=== PATIENT | male | born 1950 | race Caucasian/White ===

== ENCOUNTER 2018-08-13 18:46 | Emergency (ER) | payer MEDICARE, OTHER ==
[~2018-08-13] VITALS: Ht 167.6 cm; Wt 80.0 kg
[~2018-08-13 18:46] MED LIST: ASPI81TA52 PO; ERGO2000 PO; FINA5TAB4 PO; INSU100I31 SQ; METF100010 PO; ROSU20TA PO; TAMS0.4C2 PO
[2018-08-13 18:56] VITALS: Ht 167.6 cm; Wt 80.0 kg
[2018-08-13] MEDS ORDERED: INSU200I4 SQ (20:28)
[2018-08-13] MEDS ORDERED: TAMS0.4C2 PO (20:29)
--- NOTE | 2018-08-13 21:17 | ERD ---
ER Documentation Chief Complaint Chief Complaint had prostate surgery yesterday, states painful urination/leaking f/c HPI 68-year-old male with a history of diabetes and BPH presenting with problems with his Granda catheter. Patient had an elective UroLift done by Dr. Nichols. Granda was placed at that time. Patient is presenting today as he is having a lot of pain around his penis with leakage of urine around his Granda catheter. He states that not a lot of urine is draining into the Granda bag. He denies any abdominal pain, back pain, fever, chills, nausea, vomiting, constipation. However he intermittently has the urge to urinate and has a lot of pain around his penis. No alleviating or exacerbating factors. Pain is 10 out of 10 at maximum. ROS All systems reviewed and are negative except as per history of present illness. Medications Home Meds Active Scripts Phenazopyridine Hcl* (Pyridium*) 200 Mg Tab, 200 MG PO TID PRN for URINARY PAIN, #6 TAB Prov:HU MITCHELL MD 08/13/18 Reported Medications Tamsulosin Hcl* (Tamsulosin Hcl*) 0.4 Mg Cap.er.24h, 0.8 MG PO HS, CAP 08/13/18 Insulin Degludec (Tresiba Flextouch U-200) 200 Unit/1 Ml Insuln.pen, 20 UNIT SQ QAM 08/13/18 Finasteride* (Finasteride*) 5 Mg Tablet, 5 MG PO DAILY, TAB 08/12/18 Ergocalciferol (Vitamin D2) (VITAMIN D2) 2,000 Unit Tablet, 2000 UNIT PO DAILY, TAB 08/12/18 Rosuvastatin Calcium* (Crestor*) 20 Mg Tablet, 20 MG PO QHS, #30 TAB 08/12/18 Aspirin (Low Dose Aspirin) 81 Mg Tablet.dr, 81 MG PO DAILY, #30 TAB 08/12/18 Metformin Hcl* (Metformin Hcl*) 1,000 Mg Tablet, 1000 MG PO WITH BREAKFAST DINNE, #60 TAB 08/12/18 Discontinued Reported Medications Tamsulosin Hcl* (Tamsulosin Hcl*) 0.4 Mg Cap.er.24h, 0.4 MG PO HS, CAP 08/12/18 Insulin Degludec (Tresiba Flextouch U-100) 100 Unit/1 Ml Insuln.pen, 0 SQ DAILY SLIDING SCALE 08/12/18 Allergies Allergies: Coded Allergies: No Known Allergy (Unverified , 08/13/18) PMhx/Soc History of Surgery: Yes (EYE SURGERY) Anesthesia Reaction: No Hx Neurological Disorder: No Hx Respiratory Disorders: No Hx Cardiac Disorders: No Hx Psychiatric Problems: No Hx Miscellaneous Medical Probl: Yes (DM, BPH) Hx Alcohol Use: No Hx Substance Use: No Hx Tobacco Use: No Smoking Status: Never smoker FmHx Family History: diabetes Physical Exam Vitals Vital Signs Date Temp Pulse Resp B/P (MAP) Pulse Ox O2 O2 Flow FiO2 Time Delivery Rate 08/13/18 98.9 73 20 133/75 96 Room Air 23:07 (94) 08/13/18 98.9 92 18 166/85 97 18:56 (112) Physical Exam Const: NO acute distress Resp: Clear to auscultation bilaterally Cardio: Regular rate and rhythm, no murmurs Abd: Soft, non tender, non distended. No palpable bladder or mass. Normal bowel sounds : Granda in place.No active leakage of urine. No hematuria noted. External genitals appear normal. Skin: No petechiae or rashes Back: No midline or flank tenderness Ext: No edema Neur: Awake and alert Psych: Normal Mood and Affect Results 24 hrs Current Medications Medications Dose Sig/[place] Start Time Status Last (Trade) Ordered Route PRN Stop Time Admin Dose Reason Admin Morphine 8 mg ONCE ONCE 08/13/18 DC 08/13/18 Sulfate IM 21:30 21:28 (morphine) 08/13/18 21:31 Lidocaine 5 ml ONCE ONCE 08/13/18 DC HCl MM 22:00 (Lidocaine 08/13/18 22:01 Urojet) Belladonna 1 supp ONCE ONCE 08/13/18 DC 08/13/18 Alkaloids/Opi DC 22:00 22:20 um (B&O 08/13/18 22:01 No.15a) 200 mg ONCE ONCE 08/13/18 DC 08/13/18 Phenazopyridi PO 22:00 22:20 ne HCl 08/13/18 22:01 (Pyridium) Procedures/MDM Initial Nursing notes reviewed. Previous Medical Records requested via the Electronic Health Record. EMERGENCY DEPARTMENT COURSE / MEDICAL DECISION MAKING: The Granda catheter was irrigated, with subsequent flow of urine which was then stopped. After this, the patient's Granda catheter was exchanged without significant drainage of urine after this. Patient's pain was treated with morphine. I spoke with his urologist, Dr. Nichols, who recommended a belladonna and opium suppository, as this will help with his bladder spasms which he is likely experiencing. He also recommended Pyridium. Both medications were administered in the ER. He would like the patient to go to his office tomorrow morning at 8 AM. I discussed this with the patient and his . They are agreeable with this plan. Prescription for Pyridium given per Dr. Nichols's request. Patient's blood pressure was elevated (>120/80) but appears stable without evidence of hypertensive emergency or urgency. The patient was counseled about the risks of hypertension and urged to pursue outpatient monitoring and therapy within a week with their primary care physician. Departure Diagnosis: Primary Impression: Granda catheter problem Encounter type: initial encounter Qualified Codes: T83.9XXA - Unspecified complication of genitourinary prosthetic device, implant and graft, initial encounter Additional Impression: Penile pain Condition: Stable HU MITCHELL MD Aug 13, 2018 21:17
[2018-08-13] MEDS ORDERED: morphine 10 MG INJ IM ONE (21:30)
[2018-08-13] MEDS ORDERED: LIDOCAINE 2% JEL.PF.APP 5 ML UROJET SYRINGE MM ONE (22:00)
[2018-08-13] MEDS ORDERED: BELLADONNA ALK/OPIUM SUPP PR ONE (22:00)
[2018-08-13] MEDS ORDERED: PHENAZOPYRIDINE 100 MG TAB PO ONE (22:00)
[2018-08-13] MEDS ORDERED: PHEN-538 PO (22:39)
[2018-08-13 23:07] VITALS: BP 133/75; PULSE 73; RESP 20
== END 2018-08-13 23:12 | disposition home or self-care (01) ==
LOC: E/R 18:46
DX: N48.89 Other specified disorders of penis (principal); E11.9 Type 2 diabetes mellitus without complications; Z79.4 Long term (current) use of insulin; Z79.84 Long term (current) use of oral hypoglycemic drugs
CPT/HCPCS: 51702; 96372; 99284; J2270